=== PATIENT | male | born 1995 | race American Indian/Alaskan Native ===

== ENCOUNTER 2018-06-24 20:40 | Emergency (ER) | payer MEDICAID ==
[2018-06-24 20:40] VITALS: BMI 22.5
[2018-06-24 20:58] VITALS: RESP 16
[2018-06-24 22:23] LABS: BASO % 0.5 % (0.0-2.0); EOS # 0.1 K/uL (0.0-0.7); HEMOGLOBIN 13.6 g/dL (12.0-18.0); LYMPH # 2.2 K/uL (1.0-4.3); MEAN CORPUSCULAR HEMOGLOBIN 32.2 pg (27.0-31.0); MEAN CORPUSCULAR HGB CONC 33.5 g/dL (33.0-37.0); MONO # 0.5 K/uL (0.0-0.8); MONO % 7.6 % (0.0-10.0); NEUT # 3.2 K/uL (1.8-7.0); NEUT % 53.9 % (50.0-75.0); NRBC % 0.1 % (0.0-0.0); RBC 4.21 Mil/uL (4.40-5.90); RED CELL DISTRIBUTION WIDTH 12.6 % (11.5-14.5)
[2018-06-24 22:31] LABS: ALB/GLOB RATIO 1.4 (1.0-2.1); ALBUMIN 4.8 g/dL (3.5-5.0); ALT/SGPT 42 U/L (21-72); AST/SGOT 46 U/L (17-59); BLOOD UREA NITROGEN 16 mg/dl (9-20); CALCIUM 9.9 mg/dL (8.4-10.2); GFR NON-AFRICAN AMERICAN > 60
[2018-06-24 22:33] LABS: URINE BACTERIA RARE (<OCC); URINE BILIRUBIN NEGATIVE (NEGATIVE); URINE BLOOD NEGATIVE (NEGATIVE); URINE CLARITY CLEAR (Clear); URINE COLOR STRAW (YELLOW); URINE GLUCOSE (UA) NEG (NEGATIVE); URINE LEUKOCYTE ESTERASE TRACE Leu/uL (Negative); URINE PROTEIN NEGATIVE (NEGATIVE); URINE UROBILINOGEN 0.2-1.0 mg/dL (0.2-1.0)
--- NOTE | 2018-06-24 22:52 | ED PDOC ---
HPI: Chest Pain Time Seen by Provider: 06/24/18 21:21 Chief Complaint (Nursing): Chest Pain History Per: Patient History/Exam Limitations: no limitations Onset/Duration Of Symptoms: Days Additional Complaint(s): 22 yo healthy M presents with 1 week of left sided chest pain. Pt reports pain has gotten worse. He reports pain on left lower chest when he takes deep breaths, yells or certain movements. Pt states he had to make a presentation at work today and when speaking loudly the pain got worse. He reports 3 days of a non productive cough. Denies any injuries, heavy lifting, SOB, leg pain or swelling, recent travel, prolonged immobilization, known sick contacts, throat pain, nasal congestion. otherwise (-) radiation, (-) diaphoresis, (-) dyspnea, (-) ripping or tearing quality, (-) positional component, (-) exertional component, (-) dizziness, (-) syncope, (-) nausea, (-) vomiting, (-) calf swelling/pain, (-) neuro deficits. PMD: Lorenza Dyson Past Medical History Reviewed: Historical Data, Nursing Documentation, Vital Signs Vital Signs: Last Vital Signs Temp 98.3 F 06/24/18 20:54 Pulse 76 06/24/18 20:54 Resp 16 06/24/18 20:54 BP 126/75 06/24/18 20:54 Pulse Ox 96 06/24/18 20:54 Primary Care Provider: David Orellana - Medical History PMH: No Chronic Diseases - Surgical History Surgical History: Tonsillectomy - Family History Family History: States: Diabetes (mother) - Social History Current smoker - smoking cessation education provided: Yes (every weekend) Alcohol: Occasional Drugs: Denies - Home Medications Home Medications: Ambulatory Orders Medication Instructions Recorded Dicyclomine [Bentyl] 20 mg PO BID PRN #30 tab 06/26/16 Saccharomyces Boulardi [Florastor] 500 mg PO BID #28 cap 06/26/16 Naproxen 500 mg PO BID PRN #20 tab 06/24/18 - Allergies Allergies/Adverse Reactions: Allergies Allergy/AdvReac Type Severity Reaction Status Date / Time No Known Allergies Allergy Verified 06/26/16 14:24 ASHLYN Risk Score for UA/NSTEMI - ASHLYN Risk Score Age > 64: NO 3 or more CAD Risk Factors: NO Known CAD (Stenosis greater than 50%): NO Aspirin use in past 7 days: NO Severe Angina: NO EKG ST changes greater than 0.5mm: NO Positive Cardiac Marker: NO ASHLYN Score: 0 Risk %: 5% Wells Criteria for PE - Wells Criteria for Pulmonary Embolism Clinical Signs and Symptoms of DVT: No P.E is #1 Diagnosis, or Equally Likely: No Heart Rate >100: No Immobilization at least 3 days;Surgery previous 4 weeks: No Previous, objectively diagnosed PE or DVT: No Hemoptysis: No Malignancy w/treatment within 6 months, or palliative: No Total Score: 0 Review of Systems Constitutional: Negative for: Fever Cardiovascular: Positive for: Chest Pain. Negative for: Palpitations, Edema Respiratory: Positive for: Cough. Negative for: Shortness of Breath, Hemoptysis, SOB with Exertion Gastrointestinal: Negative for: Abdominal Pain Musculoskeletal: Negative for: Back Pain Physical Exam - Reviewed Nursing Documentation Reviewed: Yes Vital Signs Reviewed: Yes - Physical Exam Comments: GENERALIZED APPEARANCE:Patient is awake, alert, oriented x3 in no acute distress. SKIN: Warm, dry; (-) cyanosis. EYES: (-) conjunctival pallor. ENMT: Mucous membranes moist. NECK: (-) tenderness, (-) stiffness, (-) lymphadenopathy, (-) JVD. CHEST AND RESPIRATORY: (-) rash, (-) chest wall tenderness. Lungs: (-) rales, (-) rhonchi, (-) wheezes, (-) rub; breath sounds equal bilaterally. HEART AND CARDIOVASCULAR: (-) irregularity; (-) murmur, (-) gallop, (-) rub. ABDOMEN AND GI: Soft; (-) distention, (-) tenderness, (-) palpable pulsatile mass. EXTREMITIES: (-) deformity; (-) edema, (-) calf tenderness. (+) distal pulses. NEURO AND PSYCH: Mental status as above. Cranial nerves grossly intact; strength symmetric. - Laboratory Results Result Diagrams: 06/24/18 22:15 06/24/18 22:15 Lab Results: Troponin I < 0.0120 ng/mL (0.00-0.120) 06/24/18 22:15 Total Bilirubin 0.6 mg/dl (0.2-1.3) 06/24/18 22:15 AST 46 U/L (17-59) 06/24/18 22:15 ALT 42 U/L (21-72) 06/24/18 22:15 Alkaline Phosphatase 56 U/L (38-126) 06/24/18 22:15 Total Protein 8.2 G/DL (6.3-8.2) 06/24/18 22:15 Albumin 4.8 g/dL (3.5-5.0) 06/24/18 22:15 Globulin 3.4 gm/dL (2.2-3.9) 06/24/18 22:15 Albumin/Globulin Ratio 1.4 (1.0-2.1) 06/24/18 22:15 Urine Color Straw (YELLOW) 06/24/18 22:15 Urine Clarity Clear (Clear) 06/24/18 22:15 Urine pH 7.0 (5.0-8.0) 06/24/18 22:15 Ur Specific [place] 1.014 (1.003-1.030) 06/24/18 22:15 Urine Protein Negative mg/dL (NEGATIVE) 06/24/18 22:15 Urine Glucose (UA) Neg mg/dL (NEGATIVE) 06/24/18 22:15 Urine Ketones Negative mg/dL (NEGATIVE) 06/24/18 22:15 Urine Blood Negative (NEGATIVE) 06/24/18 22:15 Urine Nitrate Negative (NEGATIVE) 06/24/18 22:15 Urine Bilirubin Negative (NEGATIVE) 06/24/18 22:15 Urine Urobilinogen 0.2-1.0 mg/dL (0.2-1.0) 06/24/18 22:15 Ur Leukocyte Esterase Trace Carlos/uL (Negative) 06/24/18 22:15 Urine RBC (Auto) 1 /hpf (0-3) 06/24/18 22:15 Urine Microscopic WBC 6 /hpf (0-5) H 06/24/18 22:15 Urine Bacteria Rare (<OCC) 06/24/18 22:15 - ECG ECG: Positive for: Interpreted By Me ECG Rhythm: Positive for: Normal QRS, Sinus Rhythm (75). Negative for: ST/T Changes O2 Sat by Pulse Oximetry: 96 Medical Decision Making Medical Decision Makin:30 22 yo M with chest pain -- EKG -- CXR -- labs -- UA -- toradol IV -- re eval CXR reviewed by me - no active disease 22:55 on re eval pt reports he has not had the pain, only when I first evaluated him and asked him to take deep breaths, he had the pain 2 times out of 6 deep breathing, labs wnl, CXR and EKG show no abnormalities Discussed results, diagnosis, treatment, return precautions and f/u with pt who is understanding, in agreement and stable for dc Disposition - Clinical Impression Clinical Impression: Chest pain - Patient ED Disposition Is Patient to be Admitted: No Counseled Patient/Family Regarding: Studies Performed, Diagnosis, Need For Followup, Rx Given - Disposition Referrals: Soni Dyson MD [Medical Doctor] - Disposition: Routine/Home Disposition Time: 22:58 Condition: STABLE Additional Instructions: Thank you for letting us take care of you today. The emergency medical care you received today was directed at your acute symptoms. If you were prescribed any medication, please fill it and take as directed. It may take several days for your symptoms to resolve. Return to the Emergency Department if your symptoms worsen, do not improve, or if you have any other problems. Please contact your doctor in 2 days for re-evaluation and follow up / or call one of the physicians/clinics you have been referred to that are listed on the Patient Visit Information form that is included in your discharge packet. Bring any paperwork you were given at discharge with you along with any medications you are taking to your follow up visit. Our treatment cannot replace ongoing medical care by a primary care provider (PCP) outside of the emergency department. Prescriptions: Naproxen 500 mg PO BID PRN #20 tab PRN Reason: Pain, Moderate (4-7) Instructions: Chest Pain (DC) Print Language: BELGIAN - POA Present On Arrival: None
[2018-06-24 23:18] VITALS: BP 118/78; PULSE 84; TEMP 98; O2SAT 98
--- NOTE | 2018-06-25 08:02 | RAD ---
Date of service: 06/24/2018 HISTORY: chest pain COMPARISON: No prior. TECHNIQUE: Chest PA and lateral views FINDINGS: LUNGS: No active pulmonary disease. PLEURA: No significant pleural effusion identified. No pneumothorax apparent. CARDIOVASCULAR: No aortic atherosclerotic calcification present. Normal cardiac size. No pulmonary vascular congestion. OSSEOUS STRUCTURES: Partially visualized are right orthopedic anchors over right proximal humerus VISUALIZED UPPER ABDOMEN: Normal. OTHER FINDINGS: None. IMPRESSION: No active disease.
--- NOTE | 2018-06-25 10:27 | CARD ---
APPROVED REPORT Date of service: 06/24/2018 EKG Measurement Heart [id number] <Conclusion> Sinus rhythm with marked sinus arrhythmia Otherwise normal ECG
== END 2018-06-24 23:49 | disposition home or self-care (01) ==
LOC: H.ER 20:40
DX: R07.9 Chest pain, unspecified (principal); F17.200 Nicotine dependence, unspecified, uncomplicated
CPT/HCPCS: 71046; 80053; 81003; 84484; 85025; 93005; 96374; 99282; J1885